=== PATIENT | male | born 1980 | race Caucasian/White ===

== ENCOUNTER 2022-08-16 17:00 | Outpatient (CLI) | payer OTHER, SELFPAY ==
--- NOTE | ~2022-08-16 | XR_ITS ---
EXAMINATION: XR chest 2V Exam Date/Time: 08/16/2022 17:15 CDT HISTORY: CHRONIC COUGH Comparison: 12/31/2021. RESULT: Lines, tubes, and devices: None. Lungs and pleura: Clear. Cardiomediastinal silhouette: Stable. Other: No acute osseous or upper abdominal finding. IMPRESSION: No acute cardiopulmonary process. Reviewed, dictated and finalized at location K.
[2022-08-16 18:00] LABS: Basophils Absolute Auto 0.1 K/mm3 (0.0-0.1); Basophils Percent Auto 0.7 % (0.2-1.2); Eosinophils Percent Auto 0.1 % (0-4.4); Hematocrit 48.9 % (42.0-52.0); Hemoglobin 15.2 g/dL (14.0-18.0); Immature Granulocyte Absolute 0.23 K/mm3 (0.00-0.031); Lymphocytes Absolute Auto 1.65 K/mm3 (0.9-3.2); Lymphocytes Percent Auto 14.6 % (18.3-44.2); Mean Corpuscular HGB Conc 31.1 g/dl (32-36); Mean Corpuscular Hemoglobin 27.9 pg (26-34); Mean Corpuscular Volume 89.7 fl (80-100); Mean Platelet Volume 10.1 fl (7.4-10.4); Monocytes Absolute Auto 0.6 K/mm3 (0.1-0.6); Monocytes Percent Auto 5.6 % (2.6-8.5); Neutrophils Absolute Auto 8.7 K/mm3 (1.3-6.7); Platelet Count Result 231 k/mm3 (150-375); Red Blood Count 5.45 M/mm3 (4.6-6.20); Red Cell Distribution Width 15.3 % (11.5-14.5); White Blood Count 11.3 K/mm3 (4.5-10.0)
[2022-08-16 18:11] LABS: Anion Gap 10 mmol/L (8-16); Blood Urea Nitrogen 13 mg/dL (9-20); Calcium 8.8 mg/dL (8.4-10.2); Carbon Dioxide 24 mmol/L (22-30); Chloride 104 mmol/L (98-107); Estimated Glomerular Filt Rate > 60; Glucose 154 mg/dL (65-110); Potassium 3.9 mmol/L (3.4-5.0); Sodium 138 mmol/L (137-145)
== END 2022-08-16 17:01 | disposition home or self-care (01) ==
LOC: ANHLAB 17:06
PROVIDERS: Visit Provider Internal Medicine
DX: R05.3 Chronic cough (principal)
CPT/HCPCS: 36415; 71046; 80048; 85025

== ENCOUNTER 2022-10-13 16:25 | Outpatient (CLI) | payer OTHER, SELFPAY ==
--- NOTE | ~2022-10-13 | XR_ITS ---
[id number] DATE: 10/13/2022 17:03 INDICATION: Left knee pain. No known injury. TECHNIQUE: AP and crosstable lateral views COMPARISON: None FINDINGS: There is mild to moderate loss of height at the medial compartment joint space there is min imal periarticular spurring at the medial compartment. There is mild patellofemoral compartment spurr ing. Superior and inferior pole patellar enthesopathy. No radiopaque and particular loose body or chondral calcinosis. No periosteal reaction or bone destru ction. No fracture or dislocation or joint effusion. IMPRESSION: Osteoarthritis Reviewed, dictated and finalized at Location A. Reviewed, dictated and finalized at location A. IMPRESSION: Osteoarthritis
--- NOTE | ~2022-10-13 | XR_ITS ---
XR lumbar spine min 4V DATE: 10/13/2022 17:04 INDICATION: Right back pain TECHNIQUE: AP, lateral, coned lateral lumbosacral and bilateral oblique views COMPARISON: None FINDINGS: Mild thoracolumbar dextroscoliosis. There is degenerative spurring in the lower thoracic spine. Minimal degenerative disc disease at L1-2. Moderate degenerative disc disease at L2-3, L3-4 and L4-5. No fracture or bone destruction, spondylolysis or spondylolisthesis. The lumbar pedicles are intact. The sacroiliac joints are intact. IMPRESSION: [id number] degenerative disc disease of the lumbar spine Reviewed, dictated and finalized at location A. IMPRESSION: [id number]-ey-[id number] degenerative disc disease of the lumbar spine
== END 2022-10-13 16:26 | disposition home or self-care (01) ==
LOC: ANHLAB 16:28 → ANHIMG 16:28
PROVIDERS: PCP Internal Medicine; Visit Provider Internal Medicine
DX: M17.12 Unilateral primary osteoarthritis, left knee (principal); M54.50 Low back pain, unspecified; M54.10 Radiculopathy, site unspecified; M51.36 Other intervertebral disc degeneration, lumbar region
CPT/HCPCS: 72110; 73560

== ENCOUNTER 2022-12-22 07:57 | Outpatient (CLI) | payer OTHER, SELFPAY ==
--- NOTE | 2022-12-22 08:00 | ECHO_ITS ---
Patient Info Name: Jamshid Smart Age: 42 years : 1980 Gender: Male Ht: 71 in Wt: 450 lbs BSA: 3.32 m2 HR: 76 bpm Heart Rhythm: Sinus Rhythm Technical Quality: Poor Exam Date: 12/22/2022 8:09 AM Exam Location: [facility] Patient Status: Outpatient Admit Date: 12/22/2022 Staff Ordering Physician: Teodoro Mcgarry MD Drier Unloader: Don Garces RDCS Attending Provider: Teodoro Mcgarry MD Referring Physician: Zeferino DAWKINS; Exam Type: CA echo dop color flow w con Study Info Indications - shortness of breath Complete two-dimensional, color flow and Doppler transthoracic echocardiogram is performed with contrast to opacify the left ventricle and to improve the deliniation of the left ventricle endocardial borders. Reason for Poor Study: poor echocardiographic windows Summary 1. Technically difficult study with limited views. 2. Left ventricular chamber dimension is normal. 3. Left ventricular systolic function is hyperdynamic, estimated at >70%. 4. The left ventricular diastolic function is grade I diastolic dysfunction. 5. Right ventricular chamber dimension is moderately enlarged. 6. Right ventricular systolic function is normal. 7. No significant valvular disease appreciated on this study, however, valves were not well visualized given technically difficult study with limited views. Left Ventricle Left ventricular chamber dimension is normal. Left ventricular systolic function is hyperdynamic, estimated at >70%. The left ventricular diastolic function is grade I diastolic dysfunction. Right Ventricle Right ventricular chamber dimension is moderately enlarged. Right ventricular systolic function is normal. Left Atria Left atrial chamber dimension is normal. Right Atria Right atrial chamber dimension is normal. Atrial Septum The interatrial septum is not well visualized. Aortic Valve The aortic valve is not well visualized. There is no aortic valve stenosis. There is no aortic valve regurgitation. Pulmonic Valve The pulmonic valve is not well visualized. Mitral Valve The mitral valve has not well visualized. There is trace mitral valve regurgitation. Tricuspid Valve The tricuspid valve leaflets are not well visualized. There is trace tricuspid valve regurgitation. Pericardium/Pleural The pericardium appears epicardial fat pad. Inferior Vena Cava Inferior vena cava is not well visualized. Aorta The aortic root size at the sinus of Valsalva is not well visualized. Left Ventricular Outflow Tract Name Value Normal LVOT 2D LVOT Diameter 2.19 cm LVOT Doppler LVOT Peak Gradient 4 mmHg LVOT Mean Gradient 2 mmHg LVOT VTI 21.25 cm LVOT VTI/AV VTI Ratio 0.82 LVOT Stroke Volume 80.27 ml LVOT CO 6.60 l/min LVOT CI 1.99 L/min/m2 Pulmonic Valve Name Value Normal RVOT Doppler
[2022-12-22] MEDS: PERFLUTREN LIPID MICROSPHERES 1.5 ML VIAL DILUTED TO 10 ML TOTAL VOLUME IV PUSH (08:55)
--- NOTE | 2022-12-22 15:03 | WPDPFTINT ---
PFT Procedure Performed PFT Procedure Performed Spirometry with Pre/Post Bronchodilator Plethysmography (Lung Vol) Diffusing Cap (DLCO) Flow Vol Loop PFT Interpretation Lung volumes were measured with the body plethysmography method. The diminished expiratory reserve volume is related to obesity. The remaining lung volumes are unremarkable. Spirometry showed normal expiratory flow rates and a normal FEV1 to FVC ratio of 84%. Following administration of a bronchodilator there was no significant increase in expiratory flow rates. Lung diffusion capacity is within the normal range at 110% predicted. The flow volume loop is unremarkable. Impression: Spirometry, lung volumes, and lung diffusion capacity all within the normal range.
--- NOTE | 2022-12-28 12:56 | IVDEFINITY ---
Prior to administration of IV Definity the patient was educated on the risks and benefits of the imaging enhancing agent including potential adverse side effects. The patient verbalized understanding. Allergies were verified. No exclusion criteria were identified and at least one of the following inclusion criteria were met: 1) physician request, 2) patient technically difficult to image (per the [place] [employer] Echocardi[employer] guidelines of two or more segments not discernable within the apical view), or 3) questionable left ventricular function. ?
--- NOTE | 2022-12-29 16:31 | WPDSIXMINUTE ---
Six Minute Walk Procedure Procedure Performed Pulmonary Stress Test (6 min walk) Six Minute Walk Six Minute Walk: This is a 6 minute walk test. The test was performed and interpreted in accordance with the 2014 ERS/ATS task force guidelines. Findings: The patient's resting room air oxygen saturation measured by pulse oximetry was 92% and heart rate was 94 bpm. Patient ambulated for 305 meters and oxygen saturation remained 91 to 94%. Heart rate at the end of the study was 97 bpm. The patient did not qualify for supplemental oxygen at rest or with ambulation. There are no prior studies for comparison.
== END 2022-12-22 07:58 | disposition home or self-care (01) ==
PROVIDERS: PCP Internal Medicine; Visit Provider Internal Medicine Pulmonary Disease
DX: R06.02 Shortness of breath (principal); I51.7 Cardiomegaly; R93.1 Abnormal findings on diagnostic imaging of heart and coronary circulation
CPT/HCPCS: 94060; 94618; 94726; 94729; C8929; Q9957

== ENCOUNTER 2023-01-26 08:41 | Outpatient (CLI) | payer OTHER, SELFPAY ==
[2023-01-26 09:56] LABS: Alanine Aminotransferase 30 U/L (6-50); Albumin Level 4.3 g/dL (3.5-5.1); Alkaline Phosphatase 82 U/L (38-126); Anion Gap 10 mmol/L (8-16); Aspartate Amino Transferase 35 U/L (17-59); Bilirubin,Total 0.8 mg/dL (0.2-1.3); Blood Urea Nitrogen 18 mg/dL (9-20); Calcium 8.7 mg/dL (8.4-10.2); Carbon Dioxide 25 mmol/L (22-30); Chloride 104 mmol/L (98-107); Estimated Glomerular Filt Rate > 60; Glucose 114 mg/dL (65-110); Potassium 4.1 mmol/L (3.4-5.0); Sodium 139 mmol/L (137-145)
== END 2023-01-26 08:42 | disposition home or self-care (01) ==
LOC: ANHLAB 08:44
PROVIDERS: PCP Internal Medicine; Visit Provider Internal Medicine
DX: Z00.00 Encounter for general adult medical examination without abnormal findings (principal)
CPT/HCPCS: 36415; 80053

== ENCOUNTER 2024-12-03 09:39 | Outpatient (CLI) | payer OTHER, SELFPAY ==
--- OUTSIDE RECORDS SUMMARY | 2024-12-03 10:24 | XMS_ITS | Encounter Summary ---
Author Organization [facility] Healthcare Address [address] [place] [address] Care Team Providers Care Bar Steward Name Role Phone Brayden Mullen MD Primary Care Provider Encounter Details Date Type Department Care Team (Late st Contact Info) Description 10/11/2019 Telephone [facility] [address] [place] [address] Milagros Huizar, RT Social History Tobacco Use Types Packs/Day Years Used Date Smoking Tobacco: Never Smokeless Tobacco: Never Alcohol Use Standard Drinks/Week Comments Yes 0 (1 standard drink = 0.6 oz pur e alcohol) occasionally PHQ-2 Answer Date Recorded PHQ-2 Score 0 12/01/2018 Sex and Gender Information Value Date Recorded Sex Assigned at Not on file 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
--- OUTSIDE RECORDS SUMMARY | 2024-12-03 10:24 | XMS_ITS | Encounter Summary ---
Author Organization [facility] Healthcare Address [address] [place] [address] Care Team Providers Care Inside Parts Sales Name Role Phone Brayden Mullen MD Primary Care Provider Encounter Details Date Type Department Care Team (Late st Contact Info) Description 10/31/2019 Telephone [facility] [address] [place] [address] Agatha Durán RT Social History Tobacco Use Types Packs/Day Years Used Date Smoking Tobacco: Never Smokeless Tobacco: Never Alcohol Use Standard Drinks/Week Comments Yes 0 (1 standard drink = 0.6 oz pur e alcohol) occasionally PHQ-2 Answer Date Recorded PHQ-2 Score 0 12/01/2018 Sex and Gender Information Value Date Recorded Sex Assigned at Not on file Legal Sex Male 4:06 PM [employer] Gender Identity Not on file Sexual Orientation Not on file documented as of this encounter Miscellaneous Notes * Telephone Encounter - Agatha Durán RT - 10/31/2019 4:24 PM CDT documented in this encounter Plan of Treatment Not on file documented as of this encounter Visit Diagnoses Not on filedocumented in this encounter Care Teams Inside Parts Sales Relationship Specialty Start Date End Date Brayden Mullen MD PCP - General 07/09/16 documented as of this encounter
--- OUTSIDE RECORDS SUMMARY | 2024-12-03 10:25 | XMS_ITS | Encounter Summary ---
Author Organization [facility] Healthcare Address [address] [place] [address] Care Team Providers Care Corsets Salesperson Name Role Phone Brayden Mullen MD Primary Care Provider Encounter Details Date Type Department Care Team (Late st Contact Info) Description 10/01/2024 Results Follow-Up [facility] Medical Group Primary Care at [address] [place] [address] Brayden Mullen MD [address] [place] [address] [address] [place] [address] Stool DNA - Cologuard Social History Tobacco Use Types Packs/Day Years Used Date Smoking Tobacco: Never Smokeless Tobacco: Never Alcohol Use Standard Drinks/Week Comments Yes 0 (1 standard drink = 0.6 oz pur e alcohol) occasionally AUDIT-C Answer Date Recorded Q1: How often do you have a drink containing alc ohol? Monthly or less 02/10/2023 Q2: How many drinks containi ng alcohol do you have on a typical day when you are drinking? 1 or 2 02/10/2023 Q3: How often do you have si x or more drinks on one occasion? 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 HM updated. * Telephone Encounter - Brittany Sher MA - 10/01/2024 10:05 AM CDT Patient notified via my chart to referrals. documented in this encounter Plan of Treatment Not on file documented as of this encounter Visit Diagnoses Not on filedocumented in this encounter Care Teams Corsets Salesperson Relationship Specialty Start Date End Date Brayden Mullen MD PCP - General 07/09/16 documented as of this encounter
--- OUTSIDE RECORDS SUMMARY | 2024-12-03 10:25 | XMS_ITS | Patient Health Record ---
Author Organization [facility] Address [address] [facility] [address] [place] [address] Care Team Providers Care Acid Loader Name Role Phone Brayden Mullen MD Primary Care Provider Unavail able Reason For Referral No Information Medications Medication SIG (Take, Route, Frequency, Duration) Notes Start Date End Date Status Augmentin 875-125 MG 1 tablet Orally madelyn ry 12 hrs for 10 day(s) Active Levaquin 500 MG 1 tablet Orally Once a day for 10 day(s) 07/11/2019 Active Pantoprazole Sodium 40 MG 1 tablet Orall y bid for 30 day(s) Active Flagyl 500 MG 1 tablet Orally Thre e times a day for 10 day(s) 07/11/2019 Active Social History Tobacco Use: Social History Observation Description Date Details (start date - stop date) Never Smoker NA - NA Tobacco Use/Smoking Question Answer Notes Are you a nonsmoker Problems Problem Type SNOMED Code ICD Code Onset Dates Problem Status W/U Status Risk Notes Problem 34205192 Epigastric pain (R10.13) Active confirmed Problem 452190847 Left lower quadrant pain (R10.32) Active confirmed Problem Abdominal pain (61949210) Abdominal pain, unspecified location (R10.9) Active confirmed Problem Chronic idiopathic constipation (30967223) Chronic idiopathic constipation (K59.04) Active confirmed Problem 199376374 Change in bowel habits (R19.4) Active confirmed Problem 403544858 Colon, diverticulosis (K57.30) Active confirmed Problem 301558778 Diverticulitis (K57.92) Active confirmed Problem 45542876 Erosive esophagitis (K22.10) Active confirmed Plan Of Treatment No Information Insurance Providers Payer Name Payer Address Payer Phone Subscriber Number Group Number Insured Name Patient Relationship to Insured Coverage Start Date Coverage End Date [facility] [employer] [address] [address] [place] [phone] [id number] Jamshid Smart Self - patient is the insured Medical (General) History Medical History History ICD Code GERD Diverticulosis/Diverticulitis Hypertension Surgical History Surgery Date(Month/Year) Colonoscopy 2010
--- OUTSIDE RECORDS SUMMARY | 2024-12-03 10:25 | XMS_ITS | Encounter Summary ---
Author Organization [facility] Address 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 Gender Identity Not on file Sexual Orientation Not on file documented as of this encounter Plan of Treatment Not on file documented as of this encounter Procedures Procedure Name Priority Date/Time Associated Diagnosis Comments PATHOLOGY Routine 06/20/2007 5:00 PM CDT documented in this encounter Results * PATHOLOGY (06/20/2007 5:00 PM CDT) FINAL REPORT [address] [address] Patient: JAMSHID SMART : 1980 Procedure Date: 06/20/2007 Accession Date: 06/21/2007 Case No: [id number] Ordering Dr: DAVON CULVER Case types AW, BW, FW, NW and SH are performed by [facility], [place], [place] SURGICAL PATHOLOGY & NON-GYNECOLOGIC CYTOPATHOLOGY REPORT DIAGNOSIS SOFT TISSUE, LEFT BREAST, EXCISION: - FAT NECROSIS. Specimen Description: Mass, left breast. Operative Procedure: Not specified. Patient Information/Histor y/Diagnosis: Not provided. Gross: Received in one container labeled Jamshid Smart., mass, left breast, are two unoriented portions of fibroadipose tissue, 2.1 x 2.0 x 0.8 cm and 3.6 x 2.8 x 1.1 cm. The smaller fragment is inked black and is serially sectioned to demonstrate a homogeneous, yellow, lobulated cut surface. No fibrous tissue or mass lesions are grossly identified. The larger fragment is inked blue and is serially sectioned to demonstrate a 0.4 x 0.3 x 0.2 cm hemorrhagic area. Extending from this hemorrhagic area is a 2.0 x 1.4 x 0.8-cm bright yellow area, consistent with necrosis. No mass lesions are grossly identified. No fibrous tissue is identified. Director Of Vocational Guidance sections are submitted in blocks A1 through A4. [facility] 06.21.2007 10:45 am Microscopic: The slides are labeled [id number] and Jamshid Smart. The tissue from the left breast consists entirely of adipose tissue with intervening scant connective tissue septa. No mammary epithelium is present. The adipose tissue shows features of early fat necrosis, characterized by histiocytic infiltration of the tissue. No polarizable foreign material is identified. No tumor is seen. GL/TMZ 06.23.2007 02:31 pm Staging Form: No. ELECTRONIC SIGNATURE FOR MELODY JOE M.D.- 06/23/07 03:19 pm INTERFACE SYSTEM 06/20/2007 5:00 PM CDT us Davon Culver MD PATHOLOGY/CYTOLOGY ORDERABLES Final Result INTERFACE SYSTEM Refer to clinic/hospital department documented in this encounter Visit Diagnoses Diagnosis Lump or mass in breast documented in this encounter
--- OUTSIDE RECORDS SUMMARY | 2024-12-03 10:25 | XMS_ITS | Clinical Summary ---
Author Organization [facility] Address [address] [place] [address] Care Team Providers Care Electron Beam Welder Name Role Phone Brayden Mullen MD Primary Care Provider Allergies Active Allergy Reactions Criticality Noted Date Comments Duloxetine Hives,Itching Medium Reaction: hives, itching, Levofloxacin Itching,Rash Medium Reaction: rash, itching, Penicillins Itching Low 10/18/2017 Sulfa (Sulfonamide Antibiotics) Itching Low Medications triamcinolone (KENALOG) 0.1 % cream APPLY CREAM TOPICALLY TO AFFECTED AREA ONCE TO TWICE DAILY NEEDED. AVOID FACE AND GROIN 30 g 021 Active naloxone (NARCAN) 4 mg/actuation spray,non-aerosol Administer 1 spray into affected nostril(s) as needed for opioid reversal or respiratory depression Call 911. Administer a single spray in one nostril. Repeat every 3 minutes as needed if no or minimal response. 1 each 023 Active ALPRAZolam (XANAX) 0.5 mg tablet TAKE 1 TABLET BY MOUTH THREE TIMES DAILY NEEDED FOR ANXIETY 30 tablet 5 023 Active omeprazole (PriLOSEC) 40 mg capsule Take 1 capsule (40 mg total) by mouth daily 024 Active doxycycline (doxycycline hyclate) 100 mg capsule Take 1 tablet/capsule (100 mg total) by mouth 2 (two) times a day 20 capsule 1 024 Active QUEtiapine (SEROquel) 50 mg tablet Take 1 tablet by mouth nightly 30 tablet 11 024 Active diphenoxylate-atr opine (LOMOTIL) 2.5-0.025 mg per tabletIndications :diarrhea Take 1 tablet by mouth 4 (four) times a day as needed for diarrhea 30 tablet 3 024 Active acetaminophen, diphenhydramine, nystatin & dexamethasone (LORA) suspension Take 10 mL by mouth 4 (four) times a day 240 mL 3 025 Active acetaminophen, diphenhydramine, nystatin & dexamethasone (LORA) suspension Take 15 mL by mouth 4 (four) times a day 120 mL 3 025 Active carbidopa-levodop a (SINEMET) 25-250 mg per tablet Take 1 tablet by mouth nightly 90 tablet 3 025 2025 Active albuterol HFA (PROVENTIL HFA,VENTOLIN HFA,PROAIR HFA) 90 mcg/actuation inhaler INHALE 2 PUFFS BY MOUTH EVERY 4 HOURS NEEDED FOR WHEEZING OR SHORTNESS OF BREATH 7 each 025 Active Trelegy Ellipta 200-62.5-25 mcg inhaler Inhale 1 puff by mouth once daily 180 each 025 Active carisoprodoL (SOMA) 350 mg tablet Take 1 tablet by mouth three times daily as needed for muscle spasm 60 tablet 5 025 Active dextroamphetamine -amphetamine (ADDERALL) 10 mg tablet Take 1 tablet (10 mg total) by mouth 2 (two) times a day 60 tablet 025 Active losartan (COZAAR) 100 mg tablet Take 1 tablet by mouth twice daily 180 tablet 1 025 Active quiNINE (QUALAQUIN) 324 mg capsule TAKE 1 CAPSULE BY MOUTH NIGHTLY FOR RESTLESS LEG 90 capsule 1 025 Active ezetimibe (ZETIA) 10 mg tablet Take 1 tablet by mouth once daily 90 tablet 1 025 Active celecoxib (CeleBREX) 200 mg capsule Take 1 capsule (200 mg total) by mouth 2 (two) times a day This replaces ibuprofen 60 capsule 11 Active ondansetron ODT (ZOFRAN-ODT) 4 mg disintegrating tablet Take 1 tablet (4 mg total) by mouth every 8 (eight) hours as needed for nausea or vomiting 30 tablet 3 Active finasteride (PROSCAR) 5 mg tablet Take 1 tablet (5 mg total) by mouth daily 90 tablet 1 Active venlafaxine XR (EFFEXOR-XR) 75 mg 24 hr capsule TAKE 3 CAPSULES BY MOUTH ONCE DAILY 300 capsule 1 Active amLODIPine (NORVASC) 5 mg tablet Take 1 tablet by mouth once daily 100 tablet Active tirzepatide, weight loss, (Zepbound) 12.5 mg/0.5 mL solution vial Inject 0.5 mL (12.5 mg total) under the skin every 7 days Contact me after 4th dose for the next level 2 mL Active buPROPion XL (WELLBUTRIN XL) 150 mg 24 hr tablet Take 1 tablet by mouth once daily 90 tablet 1 Active pseudoephedrine ER (SUDAFED) 120 mg 12 hr tablet TAKE 1 TABLET BY MOUTH EVERY 12 HOURS 60 tablet 3 Active gabapentin (NEURONTIN) 300 mg capsule Take 1 capsule by mouth twice daily 180 capsule 025 Active pseudoephedrine ER (SUDAFED) 120 mg 12 hr tablet TAKE 1 TABLET BY MOUTH EVERY 12 HOURS 60 tablet 3 025 2024 Discontinued gabapentin (NEURONTIN) 300 mg capsule Take 1 capsule by mouth twice daily 180 capsule 1 025 2024 Discontinued buPROPion XL (WELLBUTRIN XL) 150 mg 24 hr tablet Take 1 tablet by mouth once daily 100 tablet 025 2024 Discontinued nitrofurantoin monohydrate (MACROBID) 100 mg capsule Take 1 capsule (100 mg total) by mouth 2 (two) times a day for 10 days 20 capsule 025 2024 Active Problems Problem Noted Date Diagnosed Date Chronic obstructive pulmonary disease, unspecifi ed 04/01/2021 Moderate persistent asthma with acute exacerbati on 04/01/2021 Bereavement 03/09/2021 Urethral stricture in male 07/26/2019 Overview (07/26/2019): S/p dilation by Dr. Peña 07/13/2019 Perforated sigmoid colon 07/24/2019 Assessment & Plan (08/14/2019 10:55 AM CDT): The area at the superior aspect of the incision was present last time. This is about 50% smaller than last time. I will touch this up again with a little silver nitrate. Over the next few days he can then transition to just Neosporin and a Band-Aid. The soreness is likely the result of increasing activity and the stretching of the incision. If however he starts having deeper abdominal pain, food intolerance or spiking fevers he will call back and I will repeat a CT scan. If things keep progressing like this he needs no further follow-up at this time. He will call back with any further questions or concerns. Assessment & Plan (08/07/2019 10:00 AM CDT): Now that the temperature is becoming warmer I have stressed the importance of keeping the pannus fold dry to prevent any use buildup and skin irritation from rubbing and trapping moisture. I have touched up the area proud flesh with silver nitrate. This should help it heal back in over the next week or so. I will see him back 1 further time to re-evaluate the wound. He will call sooner if anything changes. Assessment & Plan (07/31/2019 10:45 AM CDT): Continue low residue diet. Remaining sutures have been removed at bedside. A small amount of fibrinous tissue was removed from the small area of separation. Dry gauze and dressing applied. Patient will continue to do this for another week. We will see him back at that time to evaluate the incision 1 further time period Assessment & Plan (07/24/2019 10:06 AM CDT): GRISEL drain has been removed at bedside. They will continue local wound care to the drain exit site. They will continue with daily packing changes to the 3 areas along the incision. The patient has some excoriation to the midline excision extending across the lower abdomen. This appears to be in the distribution of the fold of his pannus. They will try and place a washcloth or hand towel to try and wick away as much of the moisture as possible. The jordana are also probably irritating some of the skin as well. These will stay in place for a further week. We will see him back in 1 week time to re-evaluate Moderate episode of recurrent major depressive d isorder 04/21/2019 Pain of both hip joints 04/21/2019 Obstructive sleep apnea syndrome 02/03/2019 Class 3 severe obesity due t o excess calories without serious comorbidity with body mass index (BMI) of 50.0 to 59.9 in adult 02/07/2018 Restless leg syndrome 02/03/2017 Abnormal weight gain 08/25/2013 Overview (07/16/2016): ABNORMAL WEIGHT GAIN Benign hypertension 08/25/2013 Overview (07/16/2016): BENIGN HYPERTENSION Morbid obesity 11/10/2012 Overview (07/16/2016): MORBID OBESITY Resolved Problems Problem Noted Date Diagnosed Date Resolved Date Sepsis due to Escherichia coli 10/19/2017 02/07/2018 Acute prostatitis 10/18/2017 02/03/2019 Depression 08/25/2013 06/16/2021 Overview (07/16/2016): DEPRESSIVE DISORDER NEC Malaise and fatigue 08/13/2011 06/17/19 Overview (07/16/2016): Fatigue / Malaise Encounters Date Type Department Care Team Description 11/13/2024 Telephone [facility] Primary Care at [address] [place] [address] Brayden Mullen MD 11/02/2024 Orders Only [facility] Primary Care at [address] [place] [address] Brayden Mullen MD 10/18/2024 Orders Only [facility] Primary Care at [address] [place] [address] Brayden Mullen MD 10/01/2024 Results Follow-Up [facility] Primary Care at [address] [address] Brayden Mullen MD Stool DNA - Cologuard 09/13/2024 Orders Only [facility] Primary Care at [address] [address] Brayden Mullen MD 09/10/2024 4:30 PM CDT Office Visit [facility] Primary Care at [address] [address] Brayden Mullen MD Annual physical exam (Primary Dx); Obstructive sleep apnea syndrome; Restless leg syndrome; Moderate persistent asthma with acute exacerbation; Moderate episode of recurrent major depressive disorder (HCC); Benign hypertension; Prediabetes; Acquired hypothyroidism; Exposure to STD; Obstructive sleep apnea; Morbid obesity with BMI of 60.0-69.9, adult (HCC) 09/10/2024 Orders Only [facility] Primary Care at [address] [address] Brayden Mullen MD Screening for colon cancer (Primary Dx) from Last 3 Months Immunizations Immunization Administration Dates Next Due Influenza, Unspecified 09/10/2024(Deferr ed: Patient Refused),02/28/2024(Deferred: Patient Refused),07/08/2023(Deferred: Patient Refused),12/18/2021(Deferred: Patient Refused),06/16/2021(Deferred: Patient Refused),01/28/2021(Deferred: Patient Refused),01/09/2021(Deferred: Patient Refused),01/31/2020(Deferred: Patient Refused),01/10/2020(Deferred: Patient Refused),01/10/2020(Deferred: Patient Refused),12/18/2019(Deferred: Patient Refused),05/01/2019(Deferred: Patient Refused),04/19/2019(Deferred: Patient Refused),02/01/2019(Deferred: Patient Refused),01/09/2019(Deferred: Patient Refused),01/09/2019(Deferred: Patient Refused),08/31/2018(Deferred: Patient Refused),01/09/2018(Deferred: Patient Refused) Surgical History Surgery Date Site/Laterality Comments COLECTOMY 07/13/2019 Medical History Medical History Date Comments Hx Other Medical back injury Hx Other Medical scoliosus Depression Depression Hypertension Sleep apnea Restless leg syndrome Chronic obstructive pulmonary disease, unspecifi ed 04/01/2021 Moderate persistent asthma with acute exacerbati on 04/01/2021 Family History Medical History Relation Name Comments Hypertension Father Hypertension; Uterine cancer Mother Cancer -uteri ne; Relation Name Status Comments Father Mother Social History Tobacco Use Types Packs/Day Years Used Date Smoking Tobacco: Never Smokeless Tobacco: Never Tobacco Cessation:Counseling Given: Not Answered Alcohol Use Standard Drinks/Week Comments Yes 0 [...] on file 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 Gender Identity Not on file Sexual Orientation Not on file Obstetrics History Last Filed Vital Signs Vital Sign Reading Time Taken Comments Blood Pressure 118/84 09/10/2024 4:17 PM CDT Pulse 100 09/10/2024 4:17 PM CDT Temperature 36.6 C (97.8 F) 09/10/2024 4:17 PM CDT Respiratory Rate 16 09/10/2024 4:17 PM CDT Oxygen Saturation 95% 09/10/2024 4:17 PM CDT Inhaled Oxygen Concentration - - Weight 226.3 kg (499 lb) 09/10/2024 4:17 PM CDT Height 180.3 cm (5' 11) 09/10/2024 4:17 PM CDT Body Mass Index 69.6 09/10/2024 4:17 PM CDT Plan of Treatment Health Maintenance Due Date Last Done Comments Hepatitis C Screening 1979 DTaP/Tdap/Td Vaccine (1 - Tdap) 1990 Varicella Vaccines (1 of 2 - 13+ 2-dose series) 1992 Hepatitis B Screening 1997 Pneumococcal vaccine <65 (1 of 2 - PCV) 1998 HPV Vaccines (1 - 3-dose SCD M series) 2006 Influenza Vaccine (#1) 2024 Depression Screening 09/10/2025 09/10/2024, 08/11/2023, 02/10/2023, Additional history exists Regular Well Visit/Exam 18-64 09/10/2025, 02/10/2023, 06/12/2020, Additional history exists Colon Cancer Screening-DNA Stool 09/26/2027 09/26/19 25 Procedures Procedure Name Priority Date/Time Associated Diagnosis Comments STOOL DNA COLOGUARD Routine 09/25/2024 6:00 PM CDT Screening for colon cancer from Last 3 Months Results * Stool DNA - Cologuard (09/25/2024 6:00 PM CDT) Stool DNA - Cologuard Negative Negative [employer] (CLIA #:[id number]) Comment: The Cologuard (TM) test was performed on this specimen. NEGATIVE TEST RESULT. A negative Cologuard result indicates a low likelihood that a colorectal cancer (CRC) or advanced adenoma (adenomatous polyps with more advanced pre-malignant features) is present. The chance that a person with a negative Cologuard test has a colorectal cancer is less than 1 in 1500 (negative predictive value >99.9%) or has an advanced adenoma is less than 5.3% (negative predictive value 94.7%). These data are based on a prospective cross-sectional study of 10,000 individuals at average risk for colorectal cancer who were screened with both Cologuard and colonoscopy. (Sheron Gregg al, N Engl J Med 2014;370(14):1286- 1297) The normal value (reference range) for this assay is negative. COLOGUARD RE-SCREENING RECOMMENDATION: Periodic colorectal cancer screening is an important part of preventive healthcare for asymptomatic individuals at average risk for colorectal cancer. Following a negative Cologuard result, the [place] Cancer Society and U.S. Multi-Society Task Force screening guidelines recommend a Cologuard re-screening interval of 3 years. References: [place] [employer] Guideline for Colorectal Cancer Screening: https://www.cancer.org/cancer/dgdip-agvvgn-alqtzl/apcvlpubn-xcxjsquvg-frhhcuv/ac s-rec ommendations.html.; Matthew DK, Gregoria REYNOLDS, Maldonado HollandK, Colorectal Cancer Screening: Recommendations for Physicians and Patients from the U.S. Multi-Society Task Force on Colorectal Cancer Screening , Am J Gastroenterology 2017; 112:8908-7048. TEST DESCRIPTION: Composite algorithmic analysis of stool DNA-biomarkers with hemoglobin immunoassay. Quantitative values of individual biomarkers are not reportable and are not associated with individual biomarker result reference ranges. Cologuard is intended for colorectal cancer screening of adults of either sex, 45 years or older, who are at average-risk for colorectal cancer (CRC). Cologuard has been approved for use by the U.S. FDA. The performance of Cologuard was established in a cross sectional study of average-risk adults aged 50-84. Cologuard performance in patients ages 45 to 49 years was estimated by sub-group analysis of near-age groups. Colonoscopies performed for a positive result may find as the most clinically significant lesion: colorectal cancer [4.0%], advanced adenoma (including sessile serrated polyps greater than or equal to 1cm diameter) [20%] or non- advanced adenoma [31%]; or no colorectal neoplasia [45%]. These estimates are derived from a prospective cross-sectional screening study of 10,000 individuals at average risk for colorectal cancer who were screened with both Cologuard and colonoscopy. (Sheron Gregg al, N Engl J Med 2014;370(14):5203-3332.) Cologuard may produce a false negative or false positive result (no colorectal cancer or precancerous polyp present at colonoscopy follow up). A negative Cologuard test result does not guarantee the absence of CRC or advanced adenoma (pre-cancer). The current Cologuard screening interval is every 3 years. ([place] Cancer Society and U.S. Multi-Society Task Force). Cologuard performance data in a 10,000 patient pivotal study using colonoscopy as the reference method can be accessed at the following location: www.[employer]/results. Additional description of the Cologuard test process, warnings and precautions can be found at www.[employer].com. Stool 09/25/2024 6:00 PM CDT 09/27/2024 11:48 AM CDT us Brayden Mullen MD LAB BODY FLUIDS AND STO OLS ORDERABLES Final Result [employer] (CLIA #:[id number]) [address] [place] [address] from Last 3 Months Insurance [facility] [employer] [facility] [address] [place] [id number] [place] [address] [facility] Advance Directives For more information, please contact: [phone] * Full Code (Latest Code Status on File) Date Activated Date Inactivated Comments 07/14/2019 12:38 AM 07/17/2019 8:40 PM * Full Code Date Activated Date Inactivated Comments 07/13/2019 1:31 PM 07/14/2019 12:37 AM Care Teams Electron Beam Welder Relationship Specialty Start Date End Date Brayden Mullen MD PCP - General 07/09/16"
--- OUTSIDE RECORDS SUMMARY | 2024-12-03 10:25 | XMS_ITS | Clinical Summary ---
Author Organization [facility] Address [address] [place] [phone] Phone Care Team Providers Care Donor Support Technician Name Role Phone Unavailable Primary Care Provider Unavailabl e Allergies Active Allergy Reactions Criticality Noted Date Comments Levofloxacin Rash Low 09/11/2006 Medications famotidine (PEPCID) 20 mg Oral tablet Take 20 mg by mouth 2 times daily. Active amLODIPine (NORVASC) 5 mg Oral tablet Take 5 mg by mouth daily. Active nabumetone (RELAFEN) 500 mg Oral tablet Take 500 mg by mouth 2 times daily. Active finasteride (PROSCAR) 5 mg Oral tabletIndicati ons:three times a week Take 5 mg by mouth daily. 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 Gender Identity Not on file Sexual Orientation Not on file Last Filed Vital Signs Vital Sign Reading Time Taken Comments Blood Pressure - - Pulse - - Temperature - - Respiratory Rate - - Oxygen Saturation - - Inhaled Oxygen Concentration - - Weight 158.8 kg (350 lb) 09/11/2009 11:35 AM CDT Height 182.9 cm (6') 09/11/2009 11:35 AM CDT Body Mass Index 47.47 09/11/2009 11:35 AM CDT Plan of Treatment Health Maintenance Due Date Last Done Comments DTAP/TDAP/TD VACCINES (1 - Tdap) 1998 HEPATITIS B VACCINES (1 of 3 - 19+ 3-dose series) 05/12 HPV VACCINES (1 - 3-dose SCDM series) 2006 COLORECTAL SCREENING 2024 Colorectal Cancer Screening 2024 FIT-DNA Q 3 years 2024 FIT/FOBT Q 1 year 2024 Flex Sig/CT Colonography Q 5 years 2024 INFLUENZA VACCINE (#1) 2024
--- OUTSIDE RECORDS SUMMARY | 2024-12-03 10:25 | XMS_ITS | Clinical Summary ---
Author Organization [facility] Address [address] [address] Phone Care Team Providers Care Retail Store Clerk Name Role Phone Brayden Mullen MD Primary Care Provider Allergies Active Allergy Reactions Criticality Noted Date Comments Levofloxacin Rash 06/06/2017 Sulfa Antibiotics Itching 06/06/2017 Medications LOSARTAN POTASSIUM PO Take by mouth. 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 Height 180.3 cm (5' 11) 06/06/2017 1:02 PM SHIP RUNNER Body Mass Index 54.39 06/06/2017 1:02 PM SHIP RUNNER Plan of Treatment Health Maintenance Due Date Last Done Comments Hepatitis C Virus (HCV) Screening 1979 TdaP Immunization 1979 Hepatitis B Immunization (1 of 3 - 19+ 3-dose series) 1998 Human Papillomavirus (HPV) Immunization (1 - 3-dose SCDM series) 2006 SARS-COV-2 Immunization ( season) 2023 Cologuard 2024 Colonoscopy 2024 Colorectal Cancer Screening 2024 Immunochemical Fecal Occult Blood 2024 Influenza Immunization (#1) 2024 Respiratory Syncytial Virus (RSV) Immunization (Adult) (1 - 1-dose 75+ series) 2054 Meningococcal Immunization (ACWY) Aged Out No longer eligible based on patient's age to complete this topic Pneumococcal Immunization Combined Aged Out No longer eligible based on patient's age to complete this topic Rotavirus Immunization Aged Out No lo nger eligible based on patient's age to complete this topic Insurance [address] [place] [id number] [place] [address] [facility] Care Teams Retail Store Clerk Relationship Specialty Start Date End Date Brayden Mullen MD [address] [place] [address] [address] [place] [address] PCP - General Internal Medicine 06/06/17
[2024-12-03 19:50] LABS: Alanine Aminotransferase 41 U/L (6-50); Albumin Level 4.3 g/dL (3.5-5.1); Alkaline Phosphatase 105 U/L (38-126); Anion Gap 10 mmol/L (4-12); Aspartate Amino Transferase 68 U/L (17-59); Bilirubin,Total 0.6 mg/dL (0.2-1.3); Blood Urea Nitrogen 17 mg/dL (9-20); Calcium 9.9 mg/dL (8.4-10.2); Carbon Dioxide 29 mmol/L (22-30); Chloride 99 mmol/L (98-107); Cholesterol 220 mg/dL (0-200); Estimated Glomerular Filt Rate > 60; Glucose 199 mg/dL (65-110); HDL Direct 27 mg/dL; Potassium 4.3 mmol/L (3.4-5.0); Sodium 138 mmol/L (137-145); Total Protein 7.7 g/dL (6.3-8.2); Triglycerides 176 mg/dL (<150)
[2024-12-03 20:11] LABS: HIV 1/2 Ab P24 Ag Result Negative (Negative)
[2024-12-03 20:23] LABS: Hemoglobin A1C 6.9 % (<5.7)
[2024-12-03 20:26] LABS: Thyroid Stimulating Hormone 0.128 uIU/mL (0.465-4.680)
[2024-12-07 13:08] LABS: Parvovirus B19, IgG 0.1 index (0.0-0.8); Parvovirus B19, IgM 0.2 index (0.0-0.8)
== END 2024-12-03 09:40 | disposition home or self-care (01) ==
PROVIDERS: PCP Internal Medicine; Visit Provider Internal Medicine
DX: R73.03 Prediabetes (principal); Z20.2 Contact with and (suspected) exposure to infections with a predominantly sexual mode of transmission; Z00.00 Encounter for general adult medical examination without abnormal findings; E03.9 Hypothyroidism, unspecified
CPT/HCPCS: 36415; 80053; 80061; 83036; 84443; 86703; 86747; G0432